=== PATIENT | female | born 1975 | race Caucasian/White ===

== ENCOUNTER 2017-01-07 16:23 | Emergency (ER) | payer OTHER ==
[2017-01-07 19:39] LABS: HEMOGLOBIN 14.1 gm/dl (12.3-15.3); RED BLOOD COUNT 5.25 M/UL (4.00-5.10); WHITE BLOOD COUNT 11.2 K/UL (4.5-11.0)
[2017-01-07 19:58] LABS: BUN/CREATININE RATIO 18 (0-10)
== END 2017-01-08 00:14 | disposition home or self-care (01) ==
LOC: ER1 16:23
PROVIDERS: Student in an Organized Health Care Education/Training Program
DX: N30.01 Acute cystitis with hematuria (principal); K85.90 Acute pancreatitis without necrosis or infection, unspecified; Z87.891 Personal history of nicotine dependence; Z88.1 Allergy status to other antibiotic agents; Z90.49 Acquired absence of other specified parts of digestive tract
CPT/HCPCS: 36415; 80053; 81001; 83690; 85025; 87086; 96365; 96367; 96375; 96376; 99284; J0696; J2270; J2405; J2550; J7050; Q9962